=== PATIENT | female | born 1930 | race Hispanic/Latino ===

== ENCOUNTER 2018-12-29 14:16 | Emergency (ER) | payer OTHER ==
[2018-12-29] MEDS ORDERED: SODIUM CHLORIDE 0.9% 1000ML 1,000 ML IV ONE (14:52)
[2018-12-29] MEDS ORDERED: ONDANSETRON HCL 4 MG/2 ML VIAL ONE (14:52)
[2018-12-29] MEDS ORDERED: KETOROLAC TROMETHAMINE 30MG/ML ONE (14:52)
[2018-12-29 15:04] LABS: BASOPHILS % (AUTO) 4.8 % (0.0-5.0); EOSINOPHILS % (AUTO) 3.2 % (0.0-8.0); HEMATOCRIT 42.6 % (36-48); LYMPHOCYTES % (AUTO) 12.9 % (21.0-51.0); MEAN CORPUSCULAR HGB CONC 33.8 g/dL (32.0-36.0); MEAN CORPUSCULAR VOLUME 88.6 fL (79-99); MONOCYTES % (AUTO) 9.9 % (3.0-13.0); NEUTROPHILS % (AUTO) 69.2 % (40.0-77.0); PLATELET COUNT (AUTO) 173 K/uL (130-400); RED BLOOD CELL COUNT(AUTO) 4.81 MIL/uL (4.00-5.50); RED CELL DISTRIBUTION WIDTH 12.6 % (11.0-15.5)
[2018-12-29 15:13] LABS: CREATININE 0.8 mg/dL (0.5-1.5)
[2018-12-29 15:17] LABS: ALBUMIN 3.8 g/dL (3.5-5.0); BILIRUBIN,DIRECT 0.1 mg/dL (0.0-0.3); BILIRUBIN,TOTAL 0.6 mg/dL (0.2-1.0); TOTAL PROTEIN, SERUM 7.3 g/dL (6.0-8.3)
[2018-12-29 15:21] LABS: APPEARANCE,URINE Clear (CLEAR); BILIRUBIN,URINE Negative (NEGATIVE); COLOR,URINE Yellow (YELLOW); GLUCOSE, URINE (UA) Negative (NEGATIVE); KETONES,URINE Negative (NEGATIVE); LEUKOCYTE ESTERASE ,URINE Small (NEGATIVE); NITRATE,URINE Negative (NEGATIVE); OCCULT BLOOD,URINE Negative (NEGATIVE); PROTEIN,URINE Negative (NEGATIVE)
[2018-12-29 15:26] LABS: B-TYPE NATRIURETIC PEPTIDE 172 pg/mL (0-100)
[2018-12-29 15:50] LABS: BACTERIA,URINE Rare /HPF (None Seen); MUCUS,URINE Many LPF (None Seen); RBC,URINE None Seen /HPF (0-1); WBC,URINE 0-1 /HPF (0-1)
== END 2018-12-29 16:30 | disposition home or self-care (01) ==
LOC: EDH 14:16
DX: E86.0 Dehydration (principal); R53.1 Weakness; I10 Essential (primary) hypertension; Z98.890 Other specified postprocedural states
CPT/HCPCS: 36415; 70450; 71045; 80048; 80076; 81001; 82550; 83690; 83880; 84484; 85025; 87804 ×2; 93005; 96361; 96374; 96375; 99285; J1885; J2405; J7030

== ENCOUNTER 2019-07-08 06:36 | Observation (INO) | payer OTHER ==
[2019-07-05 12:15] LABS: APPEARANCE,URINE Clear (CLEAR); BILIRUBIN,URINE Negative (NEGATIVE); COLOR,URINE Yellow (YELLOW); GLUCOSE, URINE (UA) Negative (NEGATIVE); KETONES,URINE Negative (NEGATIVE); LEUKOCYTE ESTERASE ,URINE Small (NEGATIVE); NITRATE,URINE Negative (NEGATIVE); OCCULT BLOOD,URINE Negative (NEGATIVE); PROTEIN,URINE Negative (NEGATIVE)
[2019-07-05 12:24] LABS: CREATININE 0.8 mg/dL (0.5-1.5); POTASSIUM 4.1 mmol/L (3.5-5.1)
--- NOTE | 2019-07-05 12:30 | NUR ---
RE: ASPIRIN PATIENT STATES THAT DR CHARLES INSTRUCTED HER NOT TO HOLD ASPIRIN SEE MEDICATION INSTRUCTIONS IN BACK OF CHART
[2019-07-05 12:31] VITALS: BP 187/64
[2019-07-05 13:29] LABS: BACTERIA,URINE Few /HPF (None Seen); RBC,URINE 0-1 /HPF (0-1)
--- NOTE | 2019-07-05 17:28 | NUR ---
LABS ABNORMAL UA REPORTED TO DR. CHARLES, FURTHER ORDERS GIVEN AND WILL BE CARRIED OUT.
[2019-07-08] VITALS (25 sets, daily range): BP systolic 133–160; BP diastolic 49–74
[~2019-07-08] VITALS: Ht 157.5 cm; Wt 76.7 kg
[~2019-07-08 06:36] MED LIST: ACET325C6 PO; AMLO5TAB9 PO; ASPI-555 PO; BRINOS OU; FURO20TA4 PO; MECL-111 PO; METO-409 PO; OMEP40CA13 PO; QUIN40TA19 PO; SIMV-43 PO; TRAM50TA4 PO
[2019-07-08] MEDS ORDERED: CEFAZOLIN SODIUM 1 GM VIAL ONE (07:37)
[2019-07-08] MEDS ORDERED: TRANEXAMIC ACID 1000MG/10ML ONE ×2 (07:37→10:51)
[2019-07-08] MEDS ORDERED: LACTATED RINGERS 1000ML 1,000 ML IV ONE (07:43)
[2019-07-08] MEDS: GENTAMICIN SULFATE 240 MG in SODIUM CHLORIDE 0.9% 100 ML IV SCH ×2 (07:58→12:13)
[2019-07-08] MEDS ORDERED: ROPIVACAINE 0.5% 5MG/ML 30ML IJ ONE (07:59)
[2019-07-08] MEDS ORDERED: ROCURONIUM 10MG/1ML SYR 10 MG/ML ML ONE (08:00)
[2019-07-08] MEDS ORDERED: CEFAZOLIN SODIUM 1 GM VIAL IVP ONE (08:00)
[2019-07-08] MEDS ORDERED: LIDOCAINE PF 2% 5ML ABBOJECT ONE (08:00)
[2019-07-08] MEDS ORDERED: PROPOFOL 10 MG/ML 20ML VIAL IV ONE (08:00)
[2019-07-08] MEDS ORDERED: FENTANYL CITRATE PF 50 MCG/1 ML 5ML AMP IV ONE (08:00)
[2019-07-08] MEDS ORDERED: EPHEDRINE SULFATE 50 MG/ML AMPULE ONE (08:43)
[2019-07-08] MEDS ORDERED: ONDANSETRON HCL 4 MG/2 ML VIAL ONE (08:50)
[2019-07-08] MEDS ORDERED: DEXAMETHASONE SOD PHOSPHATE 10MG/ML 1ML VIAL ONE (08:50)
[2019-07-08] MEDS ORDERED: NEOSTIGMINE 5MG/5ML SYR IV ONE (09:21)
[2019-07-08] MEDS ORDERED: GLYCOPYRROLATE 1 MG/5 ML SYRINGE ONE (09:21)
[2019-07-08] MEDS ORDERED: ESMOLOL HCL 10 MG/ML 10 ML VIAL ONE (09:36)
[2019-07-08] MEDS ORDERED: LABETALOL HCL 5 MG/ML 20ML VIAL IV ONE (09:47)
[2019-07-08] MEDS ORDERED: DiphenhydrAMINE HCL 50 MG/ML VIAL IVP PRN (10:45)
[2019-07-08] MEDS: ACETAMINOPHEN EXTRA STRENGTH 500 MG TABLET PO SCH ×2 (10:45→18:40)
[2019-07-08] MEDS ORDERED: POTASSIUM CHLORIDE 10% ELIXIR 20 MEQ/15 ML UDCUP PO PRN (10:45)
[2019-07-08] MEDS ORDERED: CALCIUM CARBONATE 500 MG TABLET PO PRN (10:45)
[2019-07-08] MEDS ORDERED: LIDOCAINE HCL-MPF 1% 2ML VIAL IV PRN (10:45)
[2019-07-08] MEDS ORDERED: FERROUS FUMARATE 324 MG TABLET PO PRN (10:45)
[2019-07-08] MEDS ORDERED: KETOROLAC TROMETHAMINE 15MG/ML IV PRN (10:45)
[2019-07-08] MEDS ORDERED: POTASSIUM CHLORIDE 20MEQ/100ML 100 ML IV PRN (10:45)
[2019-07-08] MEDS ORDERED: TRAMADOL HCL 50 MG TABLET PO PRN (10:45)
[2019-07-08] MEDS ORDERED: POTASSIUM CHLORIDE 20 MEQ ERTAB PO PRN (10:45)
[2019-07-08] MEDS ORDERED: TEMAZEPAM 15 MG CAPSULE PO PRN (10:45)
[2019-07-08] MEDS: SODIUM CHLORIDE 0.9% 1000ML 1,000 ML IV SCH (12:13)
[2019-07-08] MEDS ORDERED: MECLIZINE HCL 25 MG TABLET PO PRN (12:45)
[2019-07-08] MEDS ORDERED: FUROSEMIDE 20 MG TABLET PO PRN (12:45)
--- NOTE | 2019-07-08 15:12 | NUR ---
DCP CM met with pt discussed dc plans. Pt is independent prior to admission, lives at home alone, daughter and son lives close by. Denies any equipments/services. Agreeable for short term placement rehab, RAHUL signed for [facility] if needed. Pt states daughter able to assist with transportation as necessary. DC plan to SNF. CM to cont to follow up. Faxed order, clinicals, [facility] to [facility], confirmation received. Spoke to Анна will come eval pt. Aware pending PT eval and treat tomorrow morning, will fax notes once available. Pt pending ins auth and acceptance. Primary nurse aware. CM to cont to follow up. Addendum: 07/08/19 at 1514 by JASMIN CHOI LVN CM Amended: Links added.
[2019-07-08] MEDS: CEFAZOLIN SODIUM 1 GM VIAL IVP SCH ×2 (16:23→23:02)
[2019-07-08] MEDS: SIMVASTATIN 20 MG TABLET PO SCH (20:43)
[2019-07-08] MEDS: PREGABALIN 25 MG CAP PO SCH (20:43)
[2019-07-08] MEDS: CELECOXIB 200 MG CAP PO SCH (20:43)
[2019-07-08] MEDS: FAMOTIDINE 20MG TAB 20 MG TAB PO SCH (20:43)
[2019-07-08] MEDS: ASPIRIN 81MG TAB.CHEW PO SCH (20:44)
[2019-07-08] MEDS: OXYCODONE HCL 5 MG TAB PO PRN (20:54)
[2019-07-08] MEDS: Metoprolol Succinate 100 MG PO SCH (21:00)
[2019-07-09] MEDS: ACETAMINOPHEN EXTRA STRENGTH 500 MG TABLET PO SCH ×4 (03:41→18:45)
[2019-07-09 03:57] VITALS: BP 153/76
[2019-07-09 04:34] LABS: MEAN CORPUSCULAR HEMOGLOBIN 30.3 pg (27.0-33.0); MEAN CORPUSCULAR HGB CONC 34.5 g/dL (32.0-36.0); MEAN CORPUSCULAR VOLUME 87.8 fL (79-99); PLATELET COUNT (AUTO) 145 K/uL (130-400); RED BLOOD CELL COUNT(AUTO) 3.99 MIL/uL (4.00-5.50); RED CELL DISTRIBUTION WIDTH 12.4 % (11.0-15.5); WHITE BLOOD COUNT (AUTO) 12.9 K/uL (4.8-10.8)
[2019-07-09 04:45] LABS: CREATININE 0.8 mg/dL (0.5-1.5); POTASSIUM 4.1 mmol/L (3.5-5.1)
--- NOTE | 2019-07-09 05:00 | NUR ---
PT DANGLED AT BEDSIDE
[2019-07-09] MEDS: OXYCODONE HCL 5 MG TAB PO PRN ×3 (06:26→22:23)
[2019-07-09] MEDS: SODIUM CHLORIDE 0.9% 1000ML 1,000 ML IV SCH (06:35)
[2019-07-09 07:44] VITALS: BP 133/53
[2019-07-09] MEDS ORDERED: PHARMACY COMMUNICATION MISC SCH (08:00)
[2019-07-09] MEDS: AMLODIPINE BESYLATE 5 MG TAB PO SCH (09:00)
[2019-07-09] MEDS: QUINAPRIL HCL 40 MG PO SCH (09:00)
[2019-07-09] MEDS: CELECOXIB 200 MG CAP PO SCH ×2 (09:24→21:57)
[2019-07-09] MEDS: ASPIRIN 81MG TAB.CHEW PO SCH ×2 (09:24→21:57)
[2019-07-09] MEDS: FAMOTIDINE 20MG TAB 20 MG TAB PO SCH ×2 (09:25→21:56)
[2019-07-09] MEDS: PREGABALIN 25 MG CAP PO SCH ×2 (09:25→21:56)
[2019-07-09] MEDS: POLYETHYLENE GLYCOL 3350 17 GM POWD.PACK PO SCH (09:25)
[2019-07-09] MEDS: ONDANSETRON HCL 4 MG/2 ML VIAL IVP PRN (09:36)
[2019-07-09] MEDS: GENTAMICIN SULFATE 240 MG in SODIUM CHLORIDE 0.9% 100 ML IV SCH (09:36)
--- NOTE | 2019-07-09 09:40 | NUR ---
[id number] Had pt sign IM Letter.Faxed to [phone] and placed in chart under consent tab.
--- NOTE | 2019-07-09 09:47 | NUR ---
Correction to previous note: had pt sign [employer] Letter.
--- NOTE | 2019-07-09 10:45 | NUR ---
PACO Note: [facility] pending ins auth CM spoke to Анна Luther, received PT notes this morning already forwarded to insurance. Pt pending ins auth at this time. Primary nurse aware. CM to cont to follow up.
[2019-07-09 11:23] VITALS: BP 120/47
--- NOTE | 2019-07-09 15:48 | NUR ---
CM Note: [employer] pending ins auth CM spoke to Анна w/[facility], pt still pending ins auth. Made contact w/Karissa w/[facility], stated has not received request from [facility]. Again CM called [facility] and spoke to Анна. As per Анан reqeust sent to [facility] this morning. Informed Karissa of the above. Pending respond. Pt pending ins auth. Primary nurse aware. CM to cont to follow up.
[2019-07-09 16:01] VITALS: BP 136/60
--- NOTE | 2019-07-09 16:49 | NUR ---
CM Note: [facility] ins auth CM spoke to Анна Luther, pt has ins auth. Pt safe to transfer via [facility] transport van once MD cleared. Primary nurse aware. CM to cont to follow up.
[2019-07-09 19:35] VITALS: BP 133/66
[2019-07-09] MEDS: Metoprolol Succinate 100 MG PO SCH (21:00)
[2019-07-09] MEDS: SIMVASTATIN 20 MG TABLET PO SCH (21:56)
[2019-07-09 23:33] VITALS: BP 125/69
[2019-07-10] MEDS: ACETAMINOPHEN EXTRA STRENGTH 500 MG TABLET PO SCH ×2 (02:45→03:02)
[2019-07-10] MEDS: OXYCODONE HCL 5 MG TAB PO PRN ×2 (03:04→10:13)
[2019-07-10 03:59] VITALS: BP 152/75
[2019-07-10 08:06] VITALS: BP 150/61
[2019-07-10] MEDS: ONDANSETRON HCL 4 MG/2 ML VIAL IVP PRN (08:09)
--- NOTE | 2019-07-10 08:14 | NUR ---
pt vomited up her breakfast; zofran given to assist with the nausea; will cont to monitor.
[2019-07-10] MEDS ORDERED: ASPI-555 PO (08:41)
[2019-07-10] MEDS ORDERED: MACR100 PO (08:41)
[2019-07-10] MEDS ORDERED: ONDA4TAB4 PO (08:41)
[2019-07-10] MEDS ORDERED: HYDR-4457 PO (08:41)
[2019-07-10] MEDS: QUINAPRIL HCL 40 MG PO SCH (09:00)
[2019-07-10] MEDS: FAMOTIDINE 20MG TAB 20 MG TAB PO SCH (10:10)
[2019-07-10] MEDS: CELECOXIB 200 MG CAP PO SCH (10:11)
[2019-07-10] MEDS: PREGABALIN 25 MG CAP PO SCH (10:11)
[2019-07-10] MEDS: ASPIRIN 81MG TAB.CHEW PO SCH (10:11)
[2019-07-10] MEDS: AMLODIPINE BESYLATE 5 MG TAB PO SCH (10:14)
[2019-07-10] MEDS: POLYETHYLENE GLYCOL 3350 17 GM POWD.PACK PO SCH (10:14)
[2019-07-10 11:27] VITALS: BP 143/66
--- NOTE | 2019-07-10 11:34 | NUR ---
d/c report called and faxed [facility]; pt stated understanding of all d/c instructions on after care for a knee replacement including follow up, new scripts, pain management, activity and signs and symptoms of infection or problems to report to md; iv access removed.
--- NOTE | 2019-07-10 11:45 | NUR ---
pica dressing changed to right knee; pt has a well approx. inc. line with sutures in place, scant fresh bloody drainage, no redness, slight edema; inc.line cleansed with betadine then new pica dressing applied using clean technique; pt louie. well, wound care discussed and hygeine/ showering with dressing in place;
[2019-07-10 11:46] VITALS: BP 143/66
[2019-07-11] MEDS ORDERED: BISACODYL 10 MG SUPP.RECT RC PRN (10:45)
== END 2019-07-10 13:39 ==
LOC: DAH 06:36 → DAHIP 06:37 → DAH 06:37 → 4AH 11:52
PROVIDERS: ADMIT Orthopaedic Surgery; ATTEND Orthopaedic Surgery
DX: M17.11 Unilateral primary osteoarthritis, right knee (principal); M23.8X1 Other internal derangements of right knee; N39.0 Urinary tract infection, site not specified; R26.9 Unspecified abnormalities of gait and mobility; I10 Essential (primary) hypertension; E78.5 Hyperlipidemia, unspecified; K21.9 Gastro-esophageal reflux disease without esophagitis; Z85.41 Personal history of malignant neoplasm of cervix uteri; Z96.652 Presence of left artificial knee joint; Z90.710 Acquired absence of both cervix and uterus; Z79.82 Long term (current) use of aspirin; Z79.899 Other long term (current) drug therapy
CPT/HCPCS: 27447; 36415 ×2; 80048 ×2; 81001; 85027; 87077; 87088; 87186; 87641; 96365; 96366; 96375 ×2; 96376 ×2; 97039; 97116 ×3; 97161; 97530 ×3; A4215; A4221; A4222; A4223; A4649 ×4; A4663; A4930 ×3; A5120; A6260; A9272; C1763; C1776; G0378 ×51; G8979; G8980; G8981; G8982; G8983; J0690 ×4; J1100; J1580; J1885; J2001; J2405 ×3; J2704; J2710; J2795; J3010; J3490 ×6; J7120 ×2